=== PATIENT | female | born 1995 ===

== ENCOUNTER 2021-06-17 18:34 | Emergency (ER) | payer OTHER ==
[~2021-06-17] VITALS: Ht 165.1 cm; Wt 77.2 kg
[2021-06-17] MEDS ORDERED: DIPH,PERTUSS(ACELL),TET VAC/PF 0.5 ML IM-VACC ONE ×2 (22:00→22:01)
[2021-06-17] MEDS ORDERED: LIDOCAINE-MPF 1%, 5ML ONE (22:43)
[2021-06-17] MEDS ORDERED: LIDOCAINE 1%, 10ML INFIL ONE (23:00)
[2021-06-17 23:02] VITALS: BP 129/68
--- NOTE | 2021-06-17 23:02 | NUR ---
DR. 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 NEEDLE TOO DEEP. PT. TO F/U WITH ORTHO; AGREES WITH PLAN. AWIATING D/C PAPERS.
== END 2021-06-17 23:32 | disposition home or self-care (01) ==
LOC: ED 23:26
DX: S91.135A Puncture wound without foreign body of left lesser toe(s) without damage to nail, initial encounter (principal); W22.8XXA Striking against or struck by other objects, initial encounter; Y93.89 Activity, other specified; Y92.009 Unspecified place in unspecified non-institutional (private) residence as the place of occurrence of the external cause; Y99.8 Other external cause status
CPT/HCPCS: 90471; 90715; 99284